=== PATIENT | female | born 1975 | race Caucasian/White ===

== ENCOUNTER 2023-07-28 21:58 | Emergency (ER) | payer BC, SELFPAY ==
--- NOTE | 2023-07-28 | ECG_ITS ---
Test Reason : repeat Blood Pressure : / mmHG Vent. Rate : 084 BPM Atrial Rate : 084 BPM P-R Int : 132 ms QRS Dur : 096 ms QT Int : 374 ms P-R-T Axes : 042 -35 054 degrees QTc Int : 441 ms Normal sinus rhythm Left axis deviation Incomplete right bundle branch block Abnormal ECG When compared with ECG of 28-JUL-2023 22:09, slower ventricular rate Referred By: Jose C Abarca Electronically Signed By:KRISTI TEIXEIRA
--- NOTE | ~2023-07-28 | XR_ITS ---
EXAMINATION: XR CHEST CLINICAL INFORMATION: Chest pain. COMPARISON: None available. TECHNIQUE: 2 views of the chest were obtained. FINDINGS: Normal appearance of the cardiomediastinal silhouette. No focal airspace opacities, pleural effusion or pneumothorax. No acute osseous findings. Visualized upper abdomen is within normal limits. XR/XR chest 2V IMPRESSION: No acute cardiopulmonary findings.
[2023-07-28 22:18] VITALS: BP 126/73; PULSE 83; RESP 16; TEMP 36.8; O2SAT 100; BMI 23.1
[2023-07-28 22:21] LABS: MANUAL DIFF FLAG NO
[2023-07-28 22:23] LABS: Basophils Absolute Auto 0.1 X10*3/uL (0.0-0.2); Basophils Percent Auto 0.7 % (0-2); Eosinophils Absolute Auto 0.2 X10*3/uL (0.0-0.4); Eosinophils Percent Auto 2.2 % (0-4); Hematocrit 37.2 % (37.0-47.0); Hemoglobin 12.6 g/dl (12.0-16.0); Imm Gran Abs Auto 0.03 X10*3/uL (0.00-0.03); Imm Gran Pct Auto 0.4 % (0.0-0.4); Lymphocytes Absolute Auto 2.7 X10*3/uL (1.2-4.9); Mean Corpuscular HGB Conc 33.9 g/dl (31.0-35.0); Mean Corpuscular Hemoglobin 30.2 pg (27.0-33.0); Mean Corpuscular Volume 89.2 fL (80.0-98.0); Monocytes Absolute Auto 0.6 X10*3/uL (0.1-1.2); Neutrophils Absolute Auto 4.1 x10*3/uL (2.0-8.3); Neutrophils Percent Auto 53.7 % (45-73); Platelet Count 199 X10*3/uL (160-400); Red Blood Count 4.17 X10*6/uL (4.20-5.50); White Blood Count 7.6 X10*3/uL (4.8-10.8)
[2023-07-28 22:39] LABS: Alanine Aminotransferase 15 U/L (0-31); Albumin Level 4.4 g/dL (3.5-5.0); Alkaline Phosphatase 42 U/L (39-117); Anion Gap 14 (12-20); Aspartate Amino Transferase 16 U/L (5-31); Bilirubin Total 0.3 mg/dL (0.0-1.0); Blood Urea Nitrogen 14 mg/dL (9-16); Calcium 9.8 mg/dL (8.4-10.2); Carbon Dioxide 21 mmol/L (22-29); Chloride 110 mmol/L (96-108); Creatinine Clr Calc Pharmacy 79.6; Estimated Glomerular Filt Rate > 60; Glucose Random 110 mg/dL (60-115); Potassium 3.4 mmol/L (3.3-5.1); Sodium 142 mmol/L (135-145); Total Protein 6.8 g/dL (6.5-8.0)
[2023-07-28 22:47] LABS: Troponin-I High Sensitivity < 2.7 ng/L (<3.5-17.0)
--- OUTSIDE RECORDS SUMMARY | 2023-07-28 23:17 | XMS_ITS | Continuity of Care Document ---
Author Name Unknown Organization [facility] Jerry lt Address [address] [place] [address]- Care Team Providers Care Jboss Architect Name Role Phone Julieta FULLING MILL OPERATOR, Korina Hummel Primary Care Physician [place] [facility] [place] Date(s): 05/25/21 - 06/24/21 [facility] Adult [address] [place] [address]- Allergies, Adverse Reactions, Alerts Substance Reaction Severity Status polymyxin B-trimethoprim ophthalmic Active Immunizations Given and Recorded Vaccine Date Status Refusal Reason tetanus/diphtheria/pertussis, acel(Tdap) 1 03/17/21 Given SARS-CoV-2 (COVID-19) mRNA-1273 vaccine 12/18/20 R ecorded SARS-CoV-2 (COVID-19) mRNA-1273 vaccine 11/27/20 R ecorded FluLaval (oldterm) 2 09/26/11 Given diphtheria-tetanus toxoids (DT) 05/15/09 Given 1Result Comment: [facility]: [id number] 2Admin Note: pt declines Medications Mirena 52 mg intrauteral device 1 each = 52 mg, Once, 0 Refills, Maintenance, 11/11/15 15:32:23 Start Date: 11/11/15 Status: Ordered Problem List Condition Effective Dates Status Health Status Inform ant Anxiety States(Confirmed) 11/17/10 Active Hammer toe(Confirmed) 10/22/06 Active History of renal stone(Confirmed) Active Impaired fasting glucose(Confirmed) Active Social History Social History Type Response Smoking Status Never smoker entered on: 05/11/14 Sex
--- OUTSIDE RECORDS SUMMARY | 2023-07-28 23:17 | XMS_ITS | Continuity of Care Document ---
Author Name Unknown Organization [facility] Rojelio Jerry lt Address [address] [place] [address]- Care Team Providers Care Machine Packaging Technician Name Role Phone Costa Simpson MD Primary Care Physician [facility] Date[facility] 08[facility]13[facility]19 - 08/20/19 [facility] Adult [address] [place] [address]- [facility] Encounter Diagnosis Fatigue(Discharge Diagnosis) - 08/13/19 Whiplash(Discharge Diagnosis) - 08/13/19 Attending Physician: Costa Simpson MD Allergies, Adverse Reactions, Alerts Substance Reaction Severity Status polymyxin B-trimethoprim ophthalmic Active Immunizations Given and Recorded Vaccine Date Status Refusal Reason FluLaval (oldterm) 1 09/26/11 Given diphtheria-tetanus toxoids (DT) 05/15/09 Given 1Admin Note: pt declines Medications Mirena 52 mg intrauteral device 1 each = 52 mg, Once, 0 Refills, Maintenance, 11/11/15 15:32:23 Start Date: 11/11/15 Status: Ordered Problem List Condition Effective Dates Status Health Status Inform ant Acute lumbar back pain(Confirmed) Active Anxiety States(Confirmed) 11/17/10 Active Dysthymia(Confirmed) Active Hammer toe(Confirmed) 10/22/06 Active History of renal stone(Confirmed) Active Strain of right inguinal muscle(Confirmed) Active Diagnosis Diagnosis Type Effective Dates Health Status Clini rohan Service Informant Fatigue Discharge Diagnosis 08/13/19 Whiplash Discharge Diagnosis 08/13/19 Vital Signs Most recent to oldest [Reference Range]: 1 Height 167.64 cm (08/13/19 10:44 AM) Weight 66.5 kg (08/13/19 10:44 AM) Oxygen Saturation [94-100 %] 99 % (08/13/19 10:44 AM) Pulse Rate [55-90 bpm] 92 bpm *H* (08/13/19 10:44 AM) Body Mass Index [18.5-24.99] 23.66 (08/13/19 10:44 AM) Blood Pressure [90-138/55-84 mm Hg] 102/ 64mm Hg (08/13/19 10:44 AM) Temperature [96.8-100.4 DegF] 98.4 DegF (08/13/19 10:44 AM) Mode of Delivery (Oxygen) Room air (08/13/19 10:44 AM) Blood pressure sites Arm, left (08/13/19 10:44 AM) Temperature Route Oral (08/13/19 10:44 AM) Weight Obtained Via Standing scale (08/13/19 10:44 AM) Social History Social History Type Response Smoking Status Never smoker entered on: 05/08/16 Sex
--- OUTSIDE RECORDS SUMMARY | 2023-07-28 23:17 | XMS_ITS | Continuity of Care Document ---
Author Name Unknown Organization [facility] Jerry lt Address [address] [place] [address]- Care Team Providers Care Knurling Machine Operator Name Role Phone Julieta PHONE REPRESENTATIVE, Korina Hummel Primary Care Physician [phone] En[place] [facility] [place] Date(s): 05/25/21 - 06/01/21 [facility] Adult [address] [place] [address]- Encounter Diagnosis Contact dermatitis due to poison aisha(Discharge Diagnosis) - 05/25/21 Attending Physician: Demetra Mccormick NP Allergies, Adverse Reactions, Alerts Substance Reaction Severity Status polymyxin B-trimethoprim ophthalmic Active Immunizations Given and Recorded Vaccine Date Status Refusal Reason tetanus/diphtheria/pertussis, acel(Tdap) 1 03/17/21 Given SARS-CoV-2 (COVID-19) mRNA-1273 vaccine 12/18/20 R ecorded SARS-CoV-2 (COVID-19) mRNA-1273 vaccine 11/27/20 R ecorded FluLaval (oldterm) 2 09/26/11 Given diphtheria-tetanus toxoids (DT) 05/15/09 Given 1Result Comment: [facility]: [id number] 2Admin Note: pt declines Medications Mirena 52 mg intrauteral device 1 each = 52 mg, Once, 0 Refills, Maintenance, 11/11/15 15:32:23 Start Date: 11/11/15 Status: Ordered Problem List Condition Effective Dates Status Health Status Inform ant Anxiety States(Confirmed) 11/17/10 Active Hammer toe(Confirmed) 10/22/06 Active History of renal stone(Confirmed) Active Impaired fasting glucose(Confirmed) Active Diagnosis Diagnosis Type Effective Dates Health Status Clinical Service Informant Contact dermatitis due to poison aisha Discharge Diagnosis 05/25/21 Social History Social History Type Response Smoking Status Never smoker entered on: 05/11/14 Sex
--- OUTSIDE RECORDS SUMMARY | 2023-07-28 23:17 | XMS_ITS | Continuity of Care Document ---
Author Name Unknown Organization [facility] Address [address] [place] [address]- Care Team Providers Care Cable Supervisor Name Role Phone Za Fink Primary Care Physician [place] [facility]22 - 04/04/22 [facility] [address] [place] [address]- Allergies, Adverse Reactions, Alerts Substance Reaction Severity Status polymyxin B-trimethoprim ophthalmic Active Immunizations Given and Recorded Vaccine Date Status Refusal Reason SARS-CoV-2 (COVID-19) mRNA-1273 vaccine 08/01/21 R ecorded SARS-CoV-2 (COVID-19) mRNA-1273 vaccine 01/01/21 R ecorded SARS-CoV-2 (COVID-19) mRNA-1273 vaccine 12/18/20 R ecorded SARS-CoV-2 (COVID-19) mRNA-1273 vaccine 12/04/20 R ecorded SARS-CoV-2 (COVID-19) mRNA-1273 vaccine 11/27/20 R ecorded tetanus/diphtheria/pertussis, acel(Tdap) 1 03/17/21 Given FluLaval (oldterm) 2 09/26/11 Given diphtheria-tetanus toxoids (DT) 05/15/09 Given 1Result Comment: [facility]: [id number] 2Admin Note: pt declines Medications Mirena 52 [...]
--- OUTSIDE RECORDS SUMMARY | 2023-07-28 23:17 | XMS_ITS | Continuity of Care Document ---
Author Name Unknown Organization [facility]ee[facility] Serrato Jerry lt Address [address] [place] [address]- Care Team Providers Care Tape Maker Name Role Phone Za Fink Primary Care Physician [facility] Date(s): 04/10/22 - 05/10/22 [facility] Adult [address] [place] [address]- Attending Physician: Admtr, Ar8 Allergies, Adverse Reactions, Alerts Substance Reaction Severity [...] diphtheria-tetanus toxoids (DT) 05/15/09 Given 1Result Comment: [facility]: [id number] 2Admin Note: pt declines Medications Mirena 52 [...] Status Never smoker entered on: 05/11/14 Sex Care Team Personnel Name: Za Fink Address: [address] [place] [address]
--- OUTSIDE RECORDS SUMMARY | 2023-07-28 23:17 | XMS_ITS | Continuity of Care Document ---
Author Name Unknown Organization [facility] Rojelio Jerry lt Address [address] [place] [address]- Care Team Providers Care Fundraising Specialist Name Role Phone Julieta JAVA DESIGNER, Korina Hummel Primary Care Physician [phone] Encounter [facility] Date(s): 02/21/21 - 03/23/21 [facility] Adult [address] [place] [address]- Allergies, Adverse Reactions, Alerts Substance Reaction Severity Status polymyxin B-trimethoprim ophthalmic Active Immunizations Given and Recorded Vaccine Date Status Refusal Reason tetanus/diphtheria/pertussis, acel(Tdap) 1 03/17/21 Given SARS-CoV-2 (COVID-19) mRNA-1273 vaccine 12/18/20 R ecorded SARS-CoV-2 (COVID-19) mRNA-1273 vaccine 11/27/20 R ecorded FluLaval (oldterm) 2 09/26/11 Given diphtheria-tetanus toxoids (DT) 05/15/09 Given 1Result Comment: [facility]: [id number] 2Admin Note: pt declines Medications Mirena 52 [...]
--- OUTSIDE RECORDS SUMMARY | 2023-07-28 23:17 | XMS_ITS | Continuity of Care Document ---
Author Name Unknown Organization [facility] Rojelio Jerry lt Address [address] [place] [address]- Care Team Providers Care Fire Suppression Captain Name Role Phone Costa Simpson MD Primary Care Physician [place] [facility] [place]20 [place] 03/18/20 [facility] Adult [address] [place] [address]- [facility] Attending Physician: Costa Simpson MD Allergies, Adverse [...] Active Strain of right inguinal muscle(Confirmed) Active Social History Social History Type Response Smoking Status Never smoker entered on: 05/08/16 Sex
--- OUTSIDE RECORDS SUMMARY | 2023-07-28 23:17 | XMS_ITS | Continuity of Care Document ---
Author Name Unknown Organization [facility] Rojelio Jerry lt Address [address] [place] [address]- Care Team Providers Care Electrical Equipment Assembler Name Role Phone Za Fink Primary Care Physician [phone] Encounter [facility] [place] Date(s): 11/06/22 - 12/06/22 [facility] Adult [address] [place] [address]- Allergies, Adverse Reactions, Alerts Substance Reaction Severity [...] diphtheria-tetanus toxoids (DT) 05/15/09 Given 1Result Comment: [facility]: [id number] 2Admin Note: pt declines Medications Mirena 52 mg intrauteral device 1 each = 52 mg, Once, 0 Refills, Maintenance, 11/11/15 15:32:23 Start Date: 11/11/15 Status: Ordered NuLYTELY with Flavor Packs oral powder for reconstitution 240 mL, By Mouth, Every 10 minutes, split prep method, take 1st half of prep evening before procedure, 2nd half 6 hrs prior to procedure., # 1 each, 0 Refills, Maintenance, 01/24/23 17:00:00 EDT, [facility], test date 01/25 .... Start Date: 01/24/23 Status: Ordered Problem List Condition Confirmation Course Effective Dates Status Health St atus Informant Anxiety States Confirmed 11/17/10 Active Hammer toe Confirmed 10/22/06 Active History of renal stone Confirmed Active Impaired fasting glucose Confirmed Active Social History Social History Type Response Smoking Status Never smoker entered on: 05/11/14 Sex Patient Care team information Care Team Personnel Name: Za Fink Position: [facility] PCO Associate Professional Member Role: PCP Address: Address: [address] [place] [address]- Care Team Related Persons Name: CHIVO BENITEZ Address: [address] [place] [address] Name: TARAS URBINA Address: [address] [place] [address] Name: TARAS VERNON Address: home [address] [place] [address]
--- OUTSIDE RECORDS SUMMARY | 2023-07-28 23:17 | XMS_ITS | Continuity of Care Document ---
Author Name Unknown Organization [facility] Rojelio Jerry lt Address [address] [place] [address]- Care Team Providers Care Fixture Maker Name Role Phone Calvin GONZALEZ, Costa Vega Primary Care Physician [phone] [facility]counter [facility] Date(s): 03/14/20 - 04/13/20 [facility] Adult [address] [place] [address]- [facility] Allergies, Adverse Reactions, Alerts Substance Reaction Severity [...]
--- OUTSIDE RECORDS SUMMARY | 2023-07-28 23:17 | XMS_ITS | Continuity of Care Document ---
Author Name Unknown Organization [facility] Rojelio Jerry lt Address [address] [place] [address]- Care Team Providers Care Tire Wrapper Name Role Phone Calvin GONZALEZ, Costa Vega Primary Care Physician [facility]counter [facility] Date(s): 08/13/19 - 08/23/19 [facility] Adult [address] [place] [address]- [facility] Attending Physician: Admtr, Ar8 Allergies, Adverse Reactions, [...]
--- OUTSIDE RECORDS SUMMARY | 2023-07-28 23:17 | XMS_ITS | Continuity of Care Document ---
Author Name Unknown Organization [facility] Peewee Serrato Jerry lt Address [address] [place] [address]- Care Team Providers Care Product Safety Compliance Leader Name Role Phone Julieta HIGHWAY ENGINEERKorina Primary Care Physician Encounter [facility] [place] Date(s): 09/04/21 - 10/04/21 [facility] Adult [address] [place] [address]- Allergies, Adverse Reactions, Alerts Substance Reaction Severity Status polymyxin B-trimethoprim ophthalmic Active Immunizations Given and Recorded Vaccine Date Status Refusal Reason tetanus/diphtheria/pertussis, acel(Tdap) 1 03/17/21 Given SARS-CoV-2 (COVID-19) mRNA-1273 vaccine 12/18/20 R ecorded SARS-CoV-2 (COVID-19) mRNA-1273 vaccine 11/27/20 R ecorded FluLaval (oldterm) 2 09/26/11 Given diphtheria-tetanus toxoids (DT) 05/15/09 Given 1Result Comment: [facility]: [id number] 2Admin Note: pt declines Medications Mirena 52 [...]
--- OUTSIDE RECORDS SUMMARY | 2023-07-28 23:17 | XMS_ITS | Continuity of Care Document ---
Author Name Unknown Organization [facility] Peewee Serrato Jerry lt Address [address] [place] [address]- Care Team Providers Care Link Assembler Name Role Phone Julieta PRINT SHOP CHIEF CLERKKorina Primary Care Physician En[facility] [place] Date(s): 09/04/21 - 10/04/21 [facility] Adult [address] [place] [address]- Allergies, Adverse Reactions, Alerts Substance Reaction Severity Status polymyxin B-trimethoprim ophthalmic Active Immunizations Given and Recorded Vaccine Date Status Refusal Reason tetanus/diphtheria/pertussis, acel(Tdap) 1 03/17/21 Given SARS-CoV-2 (COVID-19) mRNA-1273 vaccine 12/18/20 R ecorded SARS-CoV-2 (COVID-19) mRNA-1273 vaccine 11/27/20 R ecorded FluLaval (oldterm) 2 09/26/11 Given diphtheria-tetanus toxoids (DT) 05/15/09 Given 1Result [facility]: [id number] 2Admin Note: pt declines Medications Mirena 52 [...]
--- OUTSIDE RECORDS SUMMARY | 2023-07-28 23:17 | XMS_ITS | Continuity of Care Document ---
Author Name Unknown Organization [facility] Address [address] [facility] [place] [address] [place] [address]- Care Team Providers Care Patient Assessment Coordinator Name Role Phone Za Fink Primary Care Physician [phone] Encounter 04/10/22 - 04/17/22 [facility] [address], [address] [place] [address]- Attending Physician: Joe Bolden MD Admitting Physician: Joe Bolden MD Referring Physician: Joe Bolden MD Allergies, Adverse Reactions, Alerts Substance Reaction [...] diphtheria-tetanus toxoids (DT) 05/15/09 Given 1Result Comment: [facility]: [id number] 2Admin Note: pt declines Medications Mirena 52 [...]
--- OUTSIDE RECORDS SUMMARY | 2023-07-28 23:17 | XMS_ITS | Continuity of Care Document ---
Author Name Unknown Organization [facility] Peewee Serrato Jerry lt Address [address] [place] [address]- Care Team Providers Care Narcotics Investigator Name Role Phone Za Fink Primary Care Physician [place] [facility] [place] 01/29/23 - 02/28/23 [facility] Adult [address] [place] [address]- Allergies, Adverse Reactions, Alerts Substance Reaction Severity Status polymyxin B-trimethoprim ophthalmic Active Immunizations Given and Recorded Vaccine Date Status Refusal Reason influenza virus vaccine, inactivated 07/06/22 Dale rded SARS-CoV-2 (COVID-19) mRNA-1273 vaccine 08/01/21 R ecorded SARS-CoV-2 (COVID-19) mRNA-1273 vaccine 01/01/21 R ecorded SARS-CoV-2 (COVID-19) mRNA-1273 vaccine 12/18/20 R ecorded SARS-CoV-2 (COVID-19) mRNA-1273 vaccine 12/04/20 R ecorded SARS-CoV-2 (COVID-19) mRNA-1273 vaccine 11/27/20 R ecorded tetanus/diphtheria/pertussis, acel(Tdap) 1 03/17/21 Given FluLaval (oldterm) 2 09/26/11 Given diphtheria-tetanus toxoids (DT) 05/15/09 Given 1Result Comment: [facility]: [id number] 2Admin Note: pt declines Medications Mirena 52 mg intrauteral device 1 each = 52 mg, Once, 0 Refills, Maintenance, 11/11/15 15:32:23 Start Date: 11/11/15 Status: Ordered Problem List Condition Confirmation Course Effective Dates Status Health St atus Informant Anxiety States Confirmed 11/17/10 Active Hammer toe Confirmed 10/22/06 Active History of renal stone Confirmed Active Impaired fasting glucose Confirmed Active Social History Social History Type Response Smoking Status Never smoker entered on: 05/11/14 Sex Patient Care team information Care Team Personnel Name: Za Fink Position: S PCO Associate Professional Member Role: PCP Address: Address: [address] [place] [address]- Care Team Related Persons Name: CHIVO BENITEZ Address: [address] [place] [address] Name: TARAS URBINA Address: [address] [place] [address] Name: TARAS VERNON Address: [address] [place] [address]
--- OUTSIDE RECORDS SUMMARY | 2023-07-28 23:17 | XMS_ITS | Continuity of Care Document ---
Author Name Unknown Organization [facility] ter Address [address] [place] [address]- Care Team Providers Care Plate Mill Mill Hand Name Role Phone Za Fink Primary Care Physician Encounter [facility] Date(s): 01/25/23 - 01/25/[address] [address] Discharge Disposition: A-D/C Home Attending Physician: Jaspal Fields MD Admitting Physician: Jaspal Fields MD Referring Physician: Jaspal Fields MD Allergies, Adverse Reactions, Alerts Substance Reaction [...] toxoids (DT) 05/15/09 Given 1Result Comment: [facility]: [id number] 2Admin Note: pt declines Medications Mirena 52 mg intrauteral device 1 each = 52 mg, Once, 0 Refills, Maintenance, 11/11/15 15:32:23 Start Date: 11/11/15 Status: Ordered Problem List Condition Confirmation Course Effective Dates Status Health St atus Informant Anxiety States Confirmed 11/17/10 Active Hammer toe Confirmed 10/22/06 Active History of renal stone Confirmed Active Impaired fasting glucose Confirmed Active Procedures Procedure Date Related Diagnosis Body Site Status Colonoscopy 01/25/23 Completed Vital Signs Most recent to oldest [Reference Range]: 1 2 3 Height 167.6 cm (01/25/23 8:38 AM) Weight 67.1 kg (01/25/23 8:38 AM) Oxygen Saturation [94-100 %] 100 % (01/25/23 10:07 AM) 100 % (01/25/23 10:00 AM) 100 % (01/25/23 8:38 AM) Pulse Rate [55-90 bpm] 73 bpm (01/25/23 8:38 AM) Body Mass Index [18.5-24.99 kg/m2] 23.89 kg/m2 (01/25/23 8:38 AM) Blood Pressure [90-138/55-84 mm Hg] 98/68mm Hg (01/25/23 10:07 AM) 106/68mm Hg (01/25/23 10:00 AM) 114/76mm Hg (01/25/23 8:38 AM) Respiratory Rate [16-30 br/min] 15 br/min *L* (01/25/23 10:07 AM) 16 br/min (01/25/23 10:00 AM) 14 br/min *L* (01/25/23 8:38 AM) Temperature [96.8-100.4 DegF] 97.0 DegF (01/25/23 8:38 AM) Mode of Delivery (Oxygen) Room air (01/25/23 10:07 AM) Room air (01/25/23 10:00 AM) Room air (01/25/23 8:38 AM) Blood pressure sites Arm, left (01/25/23 8:38 AM) Temperature Route Temporal (01/25/23 8:38 AM) Weight Obtained Via Patient/family state d (01/25/23 8:38 AM) Social History Social History Type Response Smoking Status Never smoker entered on: 05/11/14 Sex Note * Bere Barros RN: PERFORM Event Display: Discharge/Transfer Note Hospital Authored Date: [id number] Nursing Discharge Note Entered On: 01/25/2023 10:00 EDT Performed On: 01/25/2023 10:00 EDT by Bere Barros RN Nursing Discharge Note 2 Discharge Time : 01/25/2023 10:23 EDT Bere Barros RN - 01/25/2023 10:19 EDT Discharge Level of Care at Discharge : Home/Alf/Foster Care Patient Left Unit Via : Wheelchair Patient Accompanied Off Unit with : Responsible adult DC Instructions Provided & Signed by Pt : Yes Patient Understands D/C Instructions : Yes Patient Instructions Discharge Signed : Yes Did Pt have Specialty Bed or Wound Vac : No Bere Barros RN - 01/25/2023 10:00 EDT * Bere Barros RN: PERFORM Event Display: Patient Education/Instruction Authored Date: [id number] Inpatient Adult Discharge Instructions [address] [address] Name: ANATOLIY BENITEZ : 1975 Visit: 01/25/2023 08:09:00 Current Date: 01/25/2023 10:00 Account: [id number] Inpatient Adult Discharge Instructions We would like to thank you for allowing us to assist you with your healthcare needs. The following includes patient education materials and information regarding your injury/illness. Our entire staffstrives to provide an excellent experience for our patients and their families. PLEASE ENSURE YOU FOLLOW-UP PER THE INSTRUCTIONS BELOW! ?? YOUR OPINION IS IMPORTANT TO US! Please complete the survey you may receive by mail or email. Your feedback will be used to make improvements to the healthcare experiences of our patients and their families. Surveys are administered by [employer] ?? If further treatment with your primary care physician or another doctor is recommended, it is important for you to keep the appointment. Call your primary care physician or return to the Emergency Department immediately if your condition worsens, fails to improve, or new symptoms develop. If you need to find a doctor, you can call [facility] [employer] for a referral at [phone] or toll free at [phone] ([phone]) or log in to [email or web address].. ?? You can view and manage your care through the patient portal or by using a health care joe of your choosing. [email or web address] is a website that allows you to securely view your medical information including your hospital discharge summary, office visit summaries, medications and follow-up visits. You can also request appointments, renew medications, and request access to your medical information using a health care joe of your choosing, or just ask a question. You can enroll at [email or web address] or register during your next office visit. You have been discharged from [facility], Patient Care Unit: ENDO. If you have any questions regarding these instructions after you leave, please call us and we will be happy to assist you. [facility] Your Care Team Attending Physician Jaspal Fields MD Reason for Your Visit SCREENING COLONOSCOPY Tests Performed Below is a partial list of the tests performed during your hospitalization. You may have had other tests and procedures not included in this list. Please discuss all test results with your provider. Primary Care Provider Za Fink Advance Directive . Discharge Vitals Temperature: 97 DegF Height: 167.6 cm Pulse Rate: 73 bpm Weight: 67.1 kg Respiratory Rate:??14 br/min??Low Body Mass Index: 23.89 kg/m2 Systolic Blood Pressure: 114 mm Hg Body surface area: 1.77 Diastolic Blood Pressure: 76 mm Hg ?? Oxygen Saturation: 100 % ?? Studies Pending All tests and labs ordered during this hospital stay have been completed unless listed below. Please discuss all pending results with your provider listed above in these instructions. ?? No incomplete studies found What to do next Instructions From Your Doctor Discharge Orders You Need to Schedule the Following Appointments Follow Up with??Za Fink Where: ?? Discharge Medications ANATOLIY BENITEZ :1975 Visit Date:01/25/2023 Medications: Please continue your medications until treatment is completed or stopped by your provider. Medications not listed below should be discontinued. Discuss any questions related to medications with your provider. What How Much When Instructions Next Dose Unchanged Levonorgestrel (Mirena 52 mg intrauteral device) 1 Each Once Test Results Below is a partial list of the most recent Laboratory test results done prior to this discharge. You may have had other tests and procedures not included in this list. Please discuss all test resultswith your provider. Allergies (NKA means No Known Allergies) polymyxin B-trimethoprim ophthalmic Problems Active Problems??(4) Anxiety States?? Hammer toe?? History of renal stone?? Impaired fasting glucose?? Education Materials Below is the list of Educational Leaflet Providered with your Discharge Instructions. Surgery Medical Daystay Surgical Overnight Discharge Instructions?? Valuables and Belongings I fully understand and agree that [facility] accepts no responsibility for all my personal property including clothing, toilet articles, radios, jewelry, dentures, hearing aids, rings, money, or any other property that is in my possession or is brought to me after admission. I understand certain valuables may be placed in a hospital safe for a short period of time. I understand that the hospital is not liable for loss or damage due to accident, fire, or other natural occurrence while said property is in the safe. I accept full responsibility for any personal property that I keep with me, and will not hold the hospital responsible in case of loss or disappearance. I acknowledge that i have been encouraged to send valuables and belongings home. ?? Review of Valuable and Belonging List: With patient Date for Pt to Sign Valuables/Belongings: 01/25/23 08:38:00 ?? Valuables & Belongings ?? Clothes Electronic devices Jewelry Monetary Items Personal devices Miscellaneous Medications (Valuables) Valuables at Bedside Pants, Shirt, Shoes, Undergarments Cell phone ? Valuables Sent Home ? Valuables Sent to Security ? Other Discharge Information ? Case Management Discharge Plan?? Discharge Plan?? Discharge Level of Care at Discharge: Home/Alf/Foster Care ?? Pulmonary Rehab Status?? Pulmonary Rehab Discharge Status?? Respiratory Rate:??14 br/min??Low ? Common Emergency Awareness Tips IS IT A STROKE? Act FAST and Check for these signs: FACE Does the face look uneven? ARM Does one arm drift down? SPEECH Does their speech sound strange? TIME Call at any sign of stroke ?? Heart Attack Signs Chest discomfort: Most heart attacks involve discomfort in the center of the chest and lasts more than a few minutes, or goes away and comes back. It can feel like uncomfortable pressure, squeezing, fullness or pain. Discomfort in upper body: Symptoms can include pain or discomfort in one or both arms, back, neck, jaw or stomach. Shortness of breath: With or without discomfort. Other signs: Breaking out in a cold sweat, nausea, or lightheaded. Remember, MINUTES DO MATTER. If you experience any of these heart attack warning signs, call to get immediate medical attention! ?? Smoking can increase your chances of developing chronic health problems and can cause harmful effects to other family members in your house. If you smoke, you are strongly encouraged to quit. Please call [facility] [employer] at [phone] or [phone] ([phone]) or log in to [email or web address] for referrals to smoking cessation programs. ?? 780 Suicide & Crisis Lifeline is available 18/03 if you or someone you know needs to find a reason to keep living. By calling 506 you'll be connected to a skilled, trained counselor at a crisis center in your area. INPATIENT DISCHARGE INSTRUCTIONS SIGNATURE ANATOLIY SWARTZ Location:[facility] Registration Date and Time:01/25/2023 08:09 EDT Primary Care Physician: Za Fink, Attending Physician: Jaspal Fields MD, I ANATOLIY BENITEZ, have received the above patient education materials/instructions and have verbalized understanding. If ambulance or transport services are being used I further acknowledge being given a choice of service. ?? If you need to contact me, please call me at this number: . Patient/Batch Mixer Operator Name: Patient/Batch Mixer Operator Signature: Relationship to Patient: Witness Name/Signature: Date: * Bere Barros RN: PERFORM Event Display: Patient Education Leaflets Authored Date: [id number] Surgery Medical Daystay Surgical Overnight Discharge Instructions ?? 295 Medical Daystay/Surgical Overnight Discharge Instructions ? Since your coordination and judgment may be altered by medication and/or anesthesia, a responsible adult must drive you home from the hospital. ? If you have received medication for pain or sedation while under our care, you should not drive, operate machinery, drink alcohol, or sign any legal documents for 24 hours.?? You should have someone with you at home tonight. ? Remain at home the day of discharge.?? You may be up and about unless otherwise instructed by your physician. ? You may resume your daily prescription medication schedule.?? Any depressant medication should be avoided for 24 hours unless otherwise instructed by your surgeon or anesthesiologist. ? Call your physician for a follow-up appointment.? If you experience unusual or severe pain not relied by your pain medication, excessive bleedingor drainage, persistent nausea and vomiting, excessive swelling or redness, foul odor from incisionsite or fever over 100.6F, you need to call your physician. ? A follow-up phone call by a nurse will be made the day after your procedure.?? If you have stayed with us over night, you will not be receiving a follow-up phone call. ? Nausea and vomiting are a common side effect of prescription pain medication.?? We recommend that pills are not taken on an empty stomach.?? While taking any prescription pain medication you should not drive or drink alcohol. ? Patient Care team information Care Team Personnel Name: Za Fink Position: S PCO Associate Professional Member Role: PCP Address: Address: [address] [place] [address]- Care Team Related Persons Name: CHIVO BENITEZ Address: home [address] [place] [address] Name: TARAS URBINA Address: home [address] [place] [address] Name: TARAS VERNON Address: home [address] [place] [address]
--- OUTSIDE RECORDS SUMMARY | 2023-07-28 23:17 | XMS_ITS | Continuity of Care Document ---
Author Name Unknown Organization [facility] Address [address] [facility] [place] [address] [place] [address]- Care Team Providers Care Field Observer Name Role Phone Julieta PSYCHOLOGIST ENGINEERING, Korina Hummel Primary Care Physician [phone] Encounter 03/22/21 - 03/29/21 [facility] [address], [address] [place] [address]- Attending Physician: Joe Bolden MD Admitting Physician: [...] diphtheria-tetanus toxoids (DT) 05/15/09 Given 1Result Comment: [facility]: [id number] 2Admin Note: pt declines Medications Mirena 52 [...]
--- OUTSIDE RECORDS SUMMARY | 2023-07-28 23:17 | XMS_ITS | Continuity of Care Document ---
Author Name Unknown Organization [facility] Peewee Serrato Jerry lt Address [address] [place] [address]- Care Team Providers Care Infrastructure Architect Name Role Phone Calvin GONZALEZ, Costa Vega Primary Care Physician Encounter [facility] Date(s): 03/11/20 - 04/10/20 [facility] Adult [address] [place] [address]- [facility] Attending Physician: Admtr, Ar8 Allergies, Adverse Reactions, [...]
--- OUTSIDE RECORDS SUMMARY | 2023-07-28 23:17 | XMS_ITS | Continuity of Care Document ---
Author Name Unknown Organization [facility] Rojelio Jerry lt Address [address] [place] [address]- Care Team Providers Care Binder Stripper Hand Name Role Phone Za Fink Primary Care Physician Encounter [facility] Date(s): 03/07/22 - 03/14/22 [facility] Adult [address] [place] [address]- Attending Physician: Nicolas Fernandez MD Allergies, Adverse Reactions, Alerts Substance Reaction [...] diphtheria-tetanus toxoids (DT) 05/15/09 Given 1Result Comment: [facility]: [id number] 2Admin Note: pt declines Medications Mirena 52 mg intrauteral device 1 each = 52 mg, Once, 0 Refills, Maintenance, 11/11/15 15:32:23 Start Date: 11/11/15 Status: Ordered Problem List Condition Effective Dates Status Health Status Inform ant Anxiety States(Confirmed) 11/17/10 Active Hammer toe(Confirmed) 10/22/06 Active History of renal stone(Confirmed) Active Impaired fasting glucose(Confirmed) Active Vital Signs Most recent to oldest [Reference Range]: 1 2 3 Height 168.0 cm (03/08/22 4:20 PM) 168.0 cm (03/08/22 4:17 PM) 168 cm (03/07/22 1:54 PM) Weight 64.9 kg (03/08/22 4:20 PM) 64.9 kg (03/08/22 4:17 PM) 64.9 kg (03/07/22 1:54 PM) Oxygen Saturation [94-100 %] 99 % (03/07/22 1:54 PM) Pulse Rate [55-90 bpm] 84 bpm (03/07/22 1:54 PM) Body Mass Index [18.5-24.99] 22.99 (03/07/22 1:54 PM) Blood Pressure [90-138/55-84 mm Hg] 99/66mm Hg (03/07/22 1:54 PM) Mode of Delivery (Oxygen) Room air (03/07/22 1:54 PM) Blood pressure sites Arm, left (03/07/22 1:54 PM) Weight Obtained Via Standing scale (03/07/22 1:54 PM) Social History Social History Type Response Smoking Status Never smoker entered on: 05/11/14 Sex
--- OUTSIDE RECORDS SUMMARY | 2023-07-28 23:17 | XMS_ITS | Continuity of Care Document ---
Author Name Unknown Organization [facility] Address [address] [facility] [place] [address] [place] [address]- Care Team Providers Care Freight Sales Broker Name Role Phone Za Fink Primary Care Physician [phone] Encounter 05/30/23 - 06/06/23 [facility] [address], [address] [place] [address]- Attending Physician: Joe Bolden MD Admitting Physician: [...] 1Result Comment: [facility]: [id number] 2Admin Note: pt declines Medications Mirena 52 mg intrauteral device 1 each = 52 mg, Once, 0 Refills, Maintenance, 11/11/15 15:32:23 Start Date: 11/11/15 Status: Ordered Problem List Condition Confirmation Course Effective Dates Status Health St atus Informant Anxiety States Confirmed 11/17/10 Active Hammer toe Confirmed 10/22/06 Active History of renal stone Confirmed Active Impaired fasting glucose Confirmed Active Results Radiology Reports * Exam Date Time Procedure Performing Provider Status 05/30/23 1:54 PM MM Digital Mammo Screening Marcelle Jang; Linda (Verified) Notes: (MM Digital Mammo Screening) Reason For Exam: Z12.31 SCREENING RESULT: MM Digital Mammo Screening PROCEDURE: MM Digital Mammo Screening INDICATION: Screening. No known palpable abnormalities. COMPARISON: Dating back to 03/08/2020 TECHNIQUE: Full-field digital CC and MLO 3D tomosynthesis images of both breasts were acquired. Routine and implant excluded views. Computer-aided detection (CAD) was utilized in the interpretation of this study. DENSITY: The breast tissue is heterogeneously dense, which may obscure masses. FINDINGS: No suspicious masses, suspicious microcalcifications, or areas of architectural distortion are seen in either breast to suggest malignancy. Breast implants are smooth and normal. IMPRESSION: No mammographic evidence of malignancy. RECOMMENDATION: Annual mammographic screening BI-RADS: 1 (Negative) Lay letter mailed to patient WSN: [id number] Ordering Physician: Joe Bolden Dictated By: Jayden Johnson MD Dictated Date/Time: 05/30/23 4:41 pm Reviewed By: Jayden Johnson MD Signed By: Jayden Johnson MD Signed Date/Time: 05/30/23 4:41 pm Transcribed By: NEDA Patch Sander Date/Time: 05/30/23 4:41 pm Birads: Social History Social History Type Response Smoking Status Never smoker entered on: 05/11/14 Sex Patient Care team information Care Team Personnel Name: Za Fink Position: S PCO Associate Professional Member Role: PCP Address: Address: [address] [place] [address]- Care Team Related Persons Name: CHIVO BENITEZ Address: [address] [place] [address] Name: TARAS URBINA Address: home [address] [place] [address] Name: TARAS VERNON Address: home [address] [place] [address]
--- OUTSIDE RECORDS SUMMARY | 2023-07-28 23:17 | XMS_ITS | Continuity of Care Document ---
Author Name Unknown Organization [facility] Rojelio Jerry lt Address [address] [place] [address]- Care Team Providers Care Professional Services Specialist Name Role Phone Julieta SQUEEGEE TENDER, Korina Hummel Primary Care Physician [phone] Encounter [facility] Date(s): 03/17/21 - 04/16/21 [facility] Adult [address] [place] [address]- Attending Physician: Admtr, Ar8 Allergies, Adverse Reactions, Alerts Substance Reaction Severity Status polymyxin B-trimethoprim ophthalmic Active Immunizations Given and Recorded Vaccine Date Status Refusal Reason tetanus/diphtheria/pertussis, acel(Tdap) 1 03/17/21 Given SARS-CoV-2 (COVID-19) mRNA-1273 vaccine 12/18/20 R ecorded SARS-CoV-2 (COVID-19) mRNA-1273 vaccine 11/27/20 R ecorded FluLaval (oldterm) 2 09/26/11 Given diphtheria-tetanus toxoids (DT) 05/15/09 Given 1Result Comment: [facility]: [id number] 2Admin Note: pt declines Medications Mirena 52 [...]
--- OUTSIDE RECORDS SUMMARY | 2023-07-28 23:17 | XMS_ITS | Continuity of Care Document ---
Author Name Unknown Organization [facility] Address [address] [place] [address]- Care Team Providers Care Cow Buyer Name Role Phone Za Fink Primary Care Physician [place] [facility] [place]s): 07/05/22 - 08/04/22 [facility] [address] [place] [address] [place] Allergies, Adverse Reactions, Alerts Substance Reaction Severity [...] toxoids (DT) 05/15/09 Given 1Result Comment: [facility]: [id number] 2Admin Note: pt declines Medications Mirena 52 [...] each, 0 Refills, Maintenance, 01/24/23 17:00:00 EDT, Paty, [facility], test date 01/25 .... [...] Care Team Personnel Name: Za Fink Position: [facility] PCO Associate Professional Member Role: PCP Address: Address: [address] [place] [address]- Care Team Related Persons Name: CHIVO BENITEZ Address: home [address] [place] [address] Name: TARAS URBINA Address: [address] [place] [address] Name: TARAS VERNON Address: home [address] [place] [address]
--- OUTSIDE RECORDS SUMMARY | 2023-07-28 23:18 | XMS_ITS | Continuity of Care Document ---
Author Name Unknown Organization [facility] ter Address [address] [place] [address]- Care Team Providers Care Channel Layer Name Role Phone Anny WALLACE, Demetra Hummel Primary Care Physician Encounter [facility] [place] [facility] Date(s): 03/05/22 - 03/05/[address] [address]- Discharge Disposition: A-D/C Walkout Attending Physician: Not on Staff, Attending MD Admitting Physician: Not on Staff, Admitting MD Referring Physician: Not on Staff, Referring MD Allergies, Adverse Reactions, Alerts Substance Reaction Severity Status polymyxin B-trimethoprim ophthalmic Active Immunizations Given and Recorded Vaccine Date Status Refusal Reason tetanus/diphtheria/pertussis, acel(Tdap) 1 03/17/21 Given SARS-CoV-2 (COVID-19) mRNA-1273 vaccine 12/18/20 R ecorded SARS-CoV-2 (COVID-19) mRNA-1273 vaccine 11/27/20 R ecorded FluLaval (oldterm) 2 09/26/11 Given diphtheria-tetanus toxoids (DT) 05/15/09 Given 1Result Comment: [facility]: [id number] 2Admin Note: pt declines Medications Mirena 52 mg intrauteral device 1 each = 52 mg, Once, 0 Refills, Maintenance, 11/11/15 15:32:23 Start Date: 11/11/15 Status: Ordered Problem List Condition Effective Dates Status Health Status Inform ant Anxiety States(Confirmed) 11/17/10 Active Hammer toe(Confirmed) 10/22/06 Active History of renal stone(Confirmed) Active Impaired fasting glucose(Confirmed) Active Results Radiology Reports * Exam Date Time Procedure Performing Provider Status 03/05/22 1:38 PM Chest 2 Views Frontal and Lat Manuel , Mackenzie; Auth (Verified) Notes: (Chest 2 Views Frontal and Lat) Reason For Exam: Chest Pain;Other: RESULT: Chest 2 Views Frontal and Lat Examination: Chest performed on 03/05/2022. History: Intermittent palpitations. Findings: Frontal and lateral views of the chest are submitted without comparison. The cardiac and mediastinal silhouettes are within normal limits. The lungs are clear. The osseous and soft tissue structures are unremarkable. Impression: There is no acute cardiopulmonary disease. WSN: [id number] Ordering Physician: Liza Juarez Dictated By: Rox Pires MD Dictated Date/Time: 03/05/22 2:06 pm Reviewed By: Rox Pires MD Signed By: Rox Pires MD Signed Date/Time: 03/05/22 2:06 pm Transcribed By: NEDA Transcribed Date/Time: 03/05/22 2:06 pm Vital Signs Most recent to oldest [Reference Range]: 1 2 3 Height 168 cm (03/05/22 12:42 PM) 168 cm (03/05/22 12: PM) Weight 65 kg (03/05/22 12:42 PM) 65 kg (03/05/22 12: PM) Oxygen Saturation [94-100 %] 100 % (03/05/22 2:41 PM) 100 % (03/05/22: PM) 100 % (03/05/22 12:20 PM) Pulse Rate [55-90 bpm] 71 bpm (03/05/22 2:41 PM) 94 bpm *H* (03/05/22 12:26 PM) 94 bpm *H* (03/05/22 12:20 PM) Body Mass Index [18.5-24.99] 23.03 (03/05/22 12: PM) Blood Pressure [90-138/55-84 mm Hg] 130/85mm Hg (03/05/22 2:41 PM) 141/93mm Hg *H* (03/05/22 12: PM) Respiratory Rate [16-30 br/min] 19 br/min (03/05/22 12:26 PM) Temperature [96.8-100.4 DegF] 98.0 DegF (03/05/22 2:41 PM) 97.8 DegF (03/05/22 12:26 PM) Mode of Delivery (Oxygen) Room air (03/05/22 2:41 PM) Room air (03/05/22 12:26 PM) Room air (03/05/22 12:20 PM) Blood pressure sites Arm, left (03/05/22 2:41 PM) Arm, right (03/05/22 12:26 PM) Temperature Route Oral (03/05/22 2:41 PM) Oral (03/05/22 12:26 PM) Dry Weight 65 kg (03/05/22 12:42 PM) 65 kg (03/05/22 12:26 PM) Weight Obtained Via Standing scale (03/05/22 12:26 PM) Dry Weight Obtained Via Standing scale (03/05/22 12:26 PM) Social History Social History Type Response Smoking Status Never smoker entered on: 05/11/14 Sex
--- OUTSIDE RECORDS SUMMARY | 2023-07-28 23:18 | XMS_ITS | Continuity of Care Document ---
Author Name Unknown Organization [facility] Rojelio Jerry lt Address [address] [place] [address]- Care Team Providers Care Cash Specialist Name Role Phone Julieta PRACTICE CLINICIANKorina Primary Care Physician Encounter [facility] Date(s): 01/17/21 - 02/16/21 [facility] [place] Adult [address] [place] [address]- Allergies, Adverse Reactions, Alerts Substance Reaction Severity [...]
--- OUTSIDE RECORDS SUMMARY | 2023-07-28 23:18 | XMS_ITS | Continuity of Care Document ---
Author Name Unknown Organization [facility] Rojelio Jerry lt Address [address] [place] [address]- Care Team Providers Care Single Resource Boss Name Role Phone Julieta TOMBSTONE POLISHER, Korina Hummel Primary Care Physician [place] [facility] 05/25/21 - 06/24/21 [facility] Adult [address] [place] [address]- Attending Physician: Admtr, Ar8 Allergies, Adverse Reactions, Alerts Substance Reaction Severity Status polymyxin B-trimethoprim ophthalmic Active Immunizations Given and Recorded Vaccine Date Status Refusal Reason tetanus/diphtheria/pertussis, acel(Tdap) 1 03/17/21 Given SARS-CoV-2 (COVID-19) mRNA-1273 vaccine 12/18/20 R ecorded SARS-CoV-2 (COVID-19) mRNA-1273 vaccine 11/27/20 R ecorded FluLaval (oldterm) 2 09/26/11 Given diphtheria-tetanus toxoids (DT) 05/15/09 Given 1Result Comment: [facility]: [id number] 2Admin Note: pt declines Medications Mirena 52 [...]
--- OUTSIDE RECORDS SUMMARY | 2023-07-28 23:18 | XMS_ITS | Continuity of Care Document ---
Author Name Unknown Organization [facility] Peewee Serrato Jerry lt Address [address] [place] [address]- Care Team Providers Care Clinical Haematologist Name Role Phone Za Fink Primary Care Physician [phone] Encounter [facility] [place] Date(s): 04/10/22 - 04/17/22 [facility] Adult [address] [place] [address]- Encounter Diagnosis Wellness examination(Discharge Diagnosis) - 04/10/22 Anxiety States(Discharge Diagnosis) - 04/10/22 Attending Physician: aZ Fink Referring Physician: Justin Weaver MD Allergies, Adverse Reactions, Alerts Substance Reaction [...] diphtheria-tetanus toxoids (DT) 05/15/09 Given 1Result Comment: [facility]: [id number] 2Admin Note: pt declines Medications Mirena 52 mg intrauteral device 1 each = 52 mg, Once, 0 Refills, Maintenance, 11/11/15 15:32:23 Start Date: 11/11/15 Status: Ordered Problem List Condition Effective Dates Status Health Status Inform ant Anxiety States(Confirmed) 11/17/10 Active Hammer toe(Confirmed) 10/22/06 Active History of renal stone(Confirmed) Active Impaired fasting glucose(Confirmed) Active Diagnosis Diagnosis Type Effective Dates Health Status Clinical Service Informant Wellness examination Discharge Diagnosis 04/10/22 Anxiety States Discharge Diagnosis 04/10/22 Vital Signs Most recent to oldest [Reference Range]: 1 Height 168.0 cm (04/10/22 2:45 PM) Weight 65.8 kg (04/10/22 2:45 PM) Oxygen Saturation [94-100 %] 100 % (04/10/22 2:45 PM) Pulse Rate [55-90 bpm] 76 bpm (04/10/22 2:45 PM) Body Mass Index [18.5-24.99] 23.31 (04/10/22 2:45 PM) Blood Pressure [90-138/55-84 mm Hg] 93/6 0mm Hg (04/10/22 2:45 PM) Blood pressure sites Arm, right (04/10/22 2:45 PM) Weight Obtained Via Standing scale (04/10/22 2:45 PM) Social History Social History Type Response Smoking Status Never smoker entered on: 05/11/14 Sex
--- OUTSIDE RECORDS SUMMARY | 2023-07-28 23:18 | XMS_ITS | Continuity of Care Document ---
Author Name Unknown Organization [facility] Rojelio Jerry lt Address [address] [place] [address]- Care Team Providers Care Timber Setter Name Role Phone Calvin GONZALEZ, Costa Vega Primary Care Physician [phone] Encounter [facility] Date(s): 08/07/19 - 08/14/19 [facility] Adult [address] [place] [address]- [facility] Attending Physician: Otto WALLACE, Apple Aquino Allergies, Adverse Reactions, Alerts Substance Reaction Severity [...] Active Strain of right inguinal muscle(Confirmed) Active Vital Signs Most recent to oldest [Reference Range]: 1 Height 167.64 cm (08/07/19 2:31 PM) Weight 66.4 kg (08/07/19 2:31 PM) Oxygen Saturation [94-100 %] 99 % (08/07/19 2:31 PM) Pulse Rate [55-90 bpm] 94 bpm *H* (08/07/19 2:31 PM) Body Mass Index [18.5-24.99] 23.63 (12/13/19 2:31 PM) Blood Pressure [90-138/55-84 mm Hg] 110/ 78mm Hg (08/07/19 2:31 PM) Respiratory Rate [16-30 br/min] 12 br/mi n *L* (08/07/19 2:31 PM) Temperature [96.8-100.4 DegF] 98.8 DegF (08/07/19 2:31 PM) Mode of Delivery (Oxygen) Room air (08/07/19 2:31 PM) Blood pressure sites Arm, left (08/07/19 2:31 PM) Temperature Route Oral (08/07/19 2:31 PM) Weight Obtained Via Standing scale (08/07/19 2:31 PM) Social History Social History Type Response Smoking Status Never smoker entered on: 05/08/16 Sex
--- OUTSIDE RECORDS SUMMARY | 2023-07-28 23:18 | XMS_ITS | Continuity of Care Document ---
Author Name Unknown Organization [facility] Address [address] [facility] [place] [address]- Care Team Providers Care Black Top Spreader Machine Operator Name Role Phone Costa Simpson MD Primary Care Physician [phone] Encounter 03/08/20 - 03/15/20 [facility] [address], [address] [place] [address]- [phone] Attending Physician: Joe Bolden MD Admitting Physician: Joe Bolden MD Referring Physician: Joe Bolden MD Allergies, Adverse Reactions, Alerts Substance Reaction Severity Status polymyxin B-trimethoprim ophthalmic Active Immunizations Given and Recorded Vaccine Date Status Refusal Reason FluLaval (oldterm) 1 09/26/11 Given diphtheria-tetanus toxoids (DT) 05/15/09 Given 1Admin Note: pt declines Medications Macrobid macrocrystals-monohydrate 100 mg oral capsule 1 capsule = 100 mg, By Mouth, 2 times a day, for 7 days, with food, # 14 capsule, 0 Refills, Acute 03/18/20 11:08:00 EDT, 03/11/20 11:08:00 EDT, Capsule, [facility] # [facility], 167.64, cm, 08/13/19 10:44:00 EST, Height Start Date: 03/11/20 Stop Date: 03/18/20 Status: Ordered Mirena 52 mg intrauteral device 1 each [...]
--- OUTSIDE RECORDS SUMMARY | 2023-07-28 23:18 | XMS_ITS | Continuity of Care Document ---
Author Name Unknown Organization [facility] Peewee Serrato Jerry lt Address [address] [place] [address]- Care Team Providers Care Weblogic Developer Name Role Phone Za Fink Primary Care Physician [phone] Encounter [facility] Date(s): 12/24/22 - 01/23/23 [facility] Adult [address] [place] [address]- Allergies, Adverse Reactions, Alerts Substance Reaction Severity [...] diphtheria-tetanus toxoids (DT) 05/15/09 Given 1Result Comment: [facility]: [id number] 2Admin Note: pt declines Medications Mirena 52 [...] each, 0 Refills, Maintenance, 01/24/23 17:00:00 EDT, [facility] # [facility], test date 01/25 .... [...] Care Team Personnel Name: Za Fink Position: [facility] PCO Associate Professional Member Role: PCP Address: Address: [address] [place] [address]- Care Team Related Persons Name: CHIVO BENITEZ Address: home [address] [place] [address] Name: TARAS URBINA Address: home [address] [place] [address] Name: TARAS VERNON Address: home [address] [place] [address]
--- OUTSIDE RECORDS SUMMARY | 2023-07-28 23:18 | XMS_ITS | Continuity of Care Document ---
Author Name Unknown Organization [facility] Peewee Serrato Jerry lt Address [address] [place] [address]- Care Team Providers Care Consultant In Ergonomics And Safety Name Role Phone Za Fink Primary Care Physician [phone] Encounter [facility] Date(s): 12/25/22 - 01/24/23 [facility] Adult [address] [place] [address]- Attending Physician: Admtr, Ar8 Allergies, Adverse Reactions, [...] diphtheria-tetanus toxoids (DT) 05/15/09 Given 1Result Comment: [facility]: [id number] 2Admin Note: pt declines Medications Mirena 52 [...] Status Never smoker entered on: 05/11/14 Sex Cardiology * Event Display: Non Cardiovascular Results Authored Date: [id number] Radiology * Event Display: X-Ray Miscellaneous, Non- BH Authored Date: [id number] * Vanessa Vanessa: PERFORM Event Display: Radiology Results Scanned Authored Date: [id number] * Natacha Vázquez: PERFORM Event Display: Radiology Results Scanned Authored Date: [id number] * Lorelei Rodriguez: PERFORM Event Display: Radiology Results Scanned Authored Date: [id number] Patient Care team information Care Team Personnel Name: Za Fink Position: [facility] PCO Associate Professional Member Role: PCP Address: Address: [address] [place] [address]- Care Team Related Persons Name: CHIVO BENITEZ Address: home [address] [place] [address] Name: TARAS URBINA Address: home [address] [place] [address] Name: TARAS VERNON Address: home [address] [place] [address]
--- OUTSIDE RECORDS SUMMARY | 2023-07-28 23:18 | XMS_ITS | Continuity of Care Document ---
Author Name Unknown Organization [facility] Peewee Serrato Jerry lt Address [address] [place] [address]- Care Team Providers Care Socket Welder Helper Name Role Phone Za Fink Primary Care Physician [place] [facility] [place]23 - 02/23/23 [facility] Adult [address] [place] [address]- Allergies, Adverse Reactions, Alerts Substance Reaction Severity [...] diphtheria-tetanus toxoids (DT) 05/15/09 Given 1Result Comment: [facility]: [id number] 2Admin Note: pt declines Medications Mirena 52 [...] Associate Professional Member Role: PCP Address: Address: [address] [place] [address]- Care Team Related Persons Name: CHIVO BENITEZ Address: home [address] [place] [address] Name: TARAS URBINA Address: home [address] [place] [address] Name: TARAS VERNON Address: home [address] [place] [address]
--- OUTSIDE RECORDS SUMMARY | 2023-07-28 23:18 | XMS_ITS | Continuity of Care Document ---
Author Name Unknown Organization [facility] Peewee Serrato Jerry lt Address [address] [place] [address]- Care Team Providers Care Parts Runner Name Role Phone Julieta LABORER RAGS, Korina Hummel Primary Care Physician [phone] Encounter [facility] [place] Date(s): 03/17/21 - 03/24/21 [facility] [address] [place] [address]- Encounter Diagnosis Annual physical exam(Discharge Diagnosis) - 03/17/21 Impaired fasting glucose(Discharge Diagnosis) - 03/17/21 Short-term memory loss(Discharge Diagnosis) - 03/17/21 Attending Physician: Not on Staff, Attending MD Allergies, Adverse Reactions, Alerts Substance Reaction Severity Status polymyxin B-trimethoprim ophthalmic Active Immunizations Given and Recorded Vaccine Date Status Refusal Reason tetanus/diphtheria/pertussis, acel(Tdap) 1 03/17/21 Given SARS-CoV-2 (COVID-19) mRNA-1273 vaccine 12/18/20 R ecorded SARS-CoV-2 (COVID-19) mRNA-1273 vaccine 11/27/20 R ecorded FluLaval (oldterm) 2 09/26/11 Given diphtheria-tetanus toxoids (DT) 05/15/09 Given 1Result Comment: [facility]: [id number] 2Admin Note: pt declines Medications Mirena 52 mg intrauteral device 1 each = 52 mg, Once, 0 Refills, Maintenance, 11/11/15 15:32:23 Start Date: 11/11/15 Status: Ordered Problem List Condition Effective Dates Status Health Status Inform ant Anxiety States(Confirmed) 11/17/10 Active Hammer toe(Confirmed) 10/22/06 Active History of renal stone(Confirmed) Active Impaired fasting glucose(Confirmed) Active Diagnosis Diagnosis Type Effective Dates Health Status Cl inical Service Informant Annual physical exam Discharge Diagnosis 03/17/21 Impaired fasting glucose Discharge Diagnosis 03/17/21 Short-term memory loss Discharge Diagnosis 03/17/21 Vital Signs Most recent to oldest [Reference Range]: 1 Height 167.64 cm (03/17/21 8:11 AM) Weight 63.6 kg (03/17/21 8:11 AM) Oxygen Saturation [94-100 %] 99 % (03/17/21 8:11 AM) Pulse Rate [55-90 bpm] 76 bpm (03/17/21 8:11 AM) Body Mass Index [18.5-24.99] 22.63 (03/17/21 8:11 AM) Blood Pressure [90-138/55-84 mm Hg] 100/ 64mm Hg (03/17/21 8:11 AM) Respiratory Rate [16-30 br/min] 14 br/mi n *L* (03/17/21 8:11 AM) Temperature [96.8-100.4 DegF] 98.4 DegF (03/17/21 8:11 AM) Mode of Delivery (Oxygen) Room air (03/17/21 8:11 AM) Blood pressure sites Arm, left (03/17/21 8:11 AM) Temperature Route Oral (03/17/21 8:11 AM) Weight Obtained Via Standing scale (03/17/21 8:11 AM) Social History Social History Type Response Smoking Status Never smoker entered on: 05/11/14 Sex
--- NOTE | 2023-07-28 23:30 | ECG_ITS ---
Test Reason : PALPITATIONS Blood Pressure : / mmHG Vent. Rate : 115 BPM Atrial Rate : 122 BPM P-R Int : 000 ms QRS Dur : 084 ms QT Int : 278 ms P-R-T Axes : 064 -48 062 degrees QTc Int : 384 ms Sinus tachycardia Premature atrial complexes Left axis deviation Anteroseptal infarct , age undetermined Abnormal ECG No previous ECGs available Referred By: Jose C Abarca Electronically Signed By:KRISTI TEIXEIRA
--- NOTE | 2023-07-28 23:35 | ED_ITS ---
HPI - General Adult General Chief complaint: Arrhythmia/Palpitations Stated complaint: Heart palpatations Time Seen by Provider: 07/28/23 23:16 History of Present Illness HPI narrative: The patient is a 48-year-old who has a history of kidney stones. She has also had a cholecystectomy. She has also had C-sections. Aside from these problems she considers herself very healthy and says that she normally has low blood pressure, no history of diabetes and no history of elevated cholesterol. She has no history of smoking. She is premenopausal. Her parents are both alive in her 70s. Her mother has no cardiac history. Her father has had heart problems that started at around age 68. The patient has an IUD. She is not on any hormonal medications. She does not take any prescription medications. The patient was at a [employer] beer this afternoon. 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 Around 13:00 she had 3 episodes of chest discomfort that she describes as a cramping like discomfort. These episodes lasted about 10 seconds each and she had 3 episodes within a 10 minute period. She found these episodes quite unusual and quite alarming. Nevertheless she continued with the graft parent did not have any additional symptoms during the afternoon. The therapy finished at around 15:00 and she was able to pack up her things and drive home. This evening at home she had some additional chest discomfort and also some left hand numbness and tingling that was somewhat different than the symptoms she had at in the afternoon. She also felt somewhat short of breath. She checked her blood pressure was higher than usual. She also noticed that her heart rate was fast. Her drove her to the emergency room. Related Data Allergies Allergy/AdvReac Type Severity Reaction Status Date / Time No Known Allergies Allergy Unverified 05/12/20 17:27 Review of Systems 2 Review of Systems: Yes all other systems are reviewed and are negative [facility] Social History Social History Smoked in Last 30 Days: No Advance Directives: No Advance Directives Information Provided: No Physical Exam ED Vital Signs: Vital Signs - 24 hr 07/28/23 22:18 07/28/23 23:43 07/29/23 00:14 Temperature 98.3 F Pulse Rate 83 82 92 Respiratory Rate 16 12 13 Blood Pressure 126/73 133/85 Pulse Oximetry 100 100 100 Oxygen Delivery Method Room Air Room Air Room Air BMI result Body Mass Index 23.1 Const Other: The patient is awake alert. She looks as if he is a very healthy 48-year-old. She did not appear in distress. HENMT Other: Face symmetrical. Mucous membranes moist. Pharynx is unremarkable. Medical Decision Making Medical Decision Making [facility] Narrative: Patient presents with chest discomfort and tachycardia. She does not have significant risk factors for an acute coronary syndrome and I do not think her history is highly suggestive of acute coronary syndrome. EKG is not highly suspicion. Troponin is flat. She was also tachycardic so I also considered PE is a possibility but her D-dimer is normal. She was reassured and discharged. Lab Data 07/28/23 22:13 07/28/23 22:13 Labs: Lab Results 07/28/23 07/28/23 Range/Units 22:13 23:40 WBC 7.6 (4.8-10.8) X10*3/uL RBC 4.17 L (4.20-5.50) X10*6/uL Hgb 12.6 (12.0-16.0) g/dl Hct 37.2 (37.0-47.0) % MCV 89.2 (80.0-98.0) fL MCH 30.2 (27.0-33.0) pg MCHC 33.9 (31.0-35.0) g/dl RDW 13.0 (11.0-16.0) % Plt Count 199 (160-400) X10*3/uL MPV 10.0 (9.4-12.3) fL Immature Gran % (Auto) 0.4 (0.0-0.4) % Neut % (Auto) 53.7 (45-73) % Lymph % (Auto) 35.0 (20-40) % [place] % (Auto) 8.0 (2-11) % Eos % (Auto) 2.2 (0-4) % Baso % (Auto) 0.7 (0-2) % Lymph # (Auto) 2.7 (1.2-4.9) X10*3/uL [place] # (Auto) 0.6 (0.1-1.2) X10*3/uL Eos # (Auto) 0.2 (0.0-0.4) X10*3/uL Baso # (Auto) 0.1 (0.0-0.2) X10*3/uL Abs Immat Gran (auto) 0.03 (0.00-0.03) X10*3/uL Absolute Neuts (auto) 4.1 (2.0-8.3) x10*3/uL Absolute Nucleated RBC 0.000 (0.0-0.012) X10*3/uL Nucleated RBC % (auto) 0.0 (0.0-0.2) /100WBC D-Dimer High Sensitivty < 150 NG/ML Sodium 142 (135-145) mmol/L Potassium 3.4 (3.3-5.1) mmol/L Chloride 110 H (96-108) mmol/L Carbon Dioxide 21 L (22-29) mmol/L Anion Gap 14 (12-20) BUN 14 (9-16) mg/dL Creatinine 0.80 (0.5-1.4) mg/dL Estim Creat Clear Calc 79.6 Estimated GFR > 60 Random Glucose 110 (60-115) mg/dL Calcium 9.8 (8.4-10.2) mg/dL Total Bilirubin 0.3 (0.0-1.0) mg/dL AST 16 (5-31) U/L ALT 15 (0-31) U/L Alkaline Phosphatase 42 (39-117) U/L Troponin I High Sens < 2.7 (<3.5-17.0) ng/L Total Protein 6.8 (6.5-8.0) g/dL Albumin 4.4 (3.5-5.0) g/dL Discharge Plan Discharge Clinical Impression: Chest pain Patient Disposition: Home, Self-Care Additional Instructions: Your testing in the emergency room today seems very reassuring. I do not think his symptoms represent a heart attack or blood clot in your lungs or other potentially dangerous process. Please plan on following up soon with your regular medical provider to discuss these symptoms further. No restrictions or other recommendations seem to be indicated. Return to the emergency room if significantly worse. Referrals: Za Stafford PA [Physician Docking Pilot] - Interventions: ED Discharge Assessment Last Done: 07/29/23 01:58 Discharge Date/Time: 07/29/23 02:00
[2023-07-28 23:43] VITALS: PULSE 82; RESP 12; O2SAT 100
[2023-07-29 00:14] VITALS: BP 133/85; PULSE 92; RESP 13; O2SAT 100
[2023-07-29 01:09] LABS: D Dimer High Sensitivity < 150 NG/ML
== END 2023-07-29 02:00 | disposition home or self-care (01) ==
PROVIDERS: Emergency Provider Emergency Medicine
DX: R07.9 Chest pain, unspecified (principal); Z97.5 Presence of (intrauterine) contraceptive device
CPT/HCPCS: 36415; 71046; 80053; 84484; 85025; 85379; 93005; 99284; 99285

== ENCOUNTER → 2023-07-28 23:15 | Outpatient (BNV) | payer BC, SELFPAY | PROVIDERS: Emergency Provider Emergency Medicine; Visit Provider Internal Medicine | DX: R00.0 Tachycardia, unspecified (principal); R94.31 Abnormal electrocardiogram [ECG] [EKG] | CPT/HCPCS: 93010 ==